=== PATIENT | male | born 1975 | race Caucasian/White ===

== ENCOUNTER → 2020-07-20 16:15 | Outpatient (BNVA) | payer SELFPAY | PROVIDERS: Family Provider Family Medicine; Visit Provider Nurse Practitioner Family | DX: Z20.2 Contact with and (suspected) exposure to infections with a predominantly sexual mode of transmission (principal); A63.0 Anogenital (venereal) warts | CPT/HCPCS: 87491; 87591 ==

== ENCOUNTER 2021-09-15 07:43 | Emergency (ER) | payer SELFPAY ==
[2021-09-15 08:00] VITALS: BP 164/94; PULSE 75; RESP 16; TEMP 36.7; O2SAT 98; BMI 25.7
[2021-09-15 08:14] VITALS: BP 164/94; PULSE 80; RESP 18; TEMP 37; O2SAT 98
--- NOTE | 2021-09-15 09:03 | XRR_ITS ---
PROCEDURE INFORMATION: Exam: XR Right Wrist Exam date and time: 09/15/2021 9:03 AM Age: 46 years old Clinical indication: Pain; Wrist; Right TECHNIQUE: Imaging protocol: XR Right wrist. Views: 3 or more views. COMPARISON: No relevant prior studies available. FINDINGS: Bones/joints: Normal. Soft tissues: Normal. XR/XR wrist RT min 3V* [id number] IMPRESSION: No acute findings. Radiation Dose CTDIVOL = (mGy): DLP = (mGy-cm)
--- NOTE | 2021-09-15 09:07 | W.ED.GENADLT ---
HPI - General Adult General: Chief complaint: General Medical Stated complaint: R. Arm Pain/Elbow Down Time Seen by Provider: 09/15/21 08:06 Source: patient and family Mode of arrival: ambulatory History of Present Illness: HPI narrative: 46-year-old male presents emergency department chief complaint of right wrist pain right forearm pain after a proximal Enterobacter walnuts yesterday for work he reports with her machine was broken when she was lifting heavy canisters up to 100 pounds each bags contained walnuts. Patient reports of a known history of prior injury noted to the right wrist he reports that he woke up this morning with increased pain discomfort swelling and difficulty with bending the wrist. Patient has no other complaints at this time. Onset (ago): day(s) (1) Radiation: extremity Severity: moderate Relieving factors: immobilization and rest Exacerbating factors: movement Associated symptoms: Reports no associated symptoms; Deny chest pain, dyspnea, headache(s), nausea, rash, palpitations or vomiting Review of Systems General: Reports: 10 or more systems reviewed and unremarkable except in HPI and below Const: Denies: fever(s) or chills Eyes: Denies: change in vision or blurry vision ENMT: Denies: throat pain Card: Denies: chest pain or palpitations Resp: Denies: dyspnea or productive cough GI: Denies: abdominal pain, nausea or vomiting : Denies: flank pain Musc: Reports: extremity pain, extremity swelling, joint pain, joint swelling, joint stiffness and limited range of motion Skin/Breast: Denies: rash or pruritus Neuro: Denies: headache(s) Psych: Denies: anxiety or depression Chandu/Lymph: Denies: easy bleeding All/Imm: Denies: urticaria, throat swelling or facial swelling PFS ED PFSH: Social History (Updated 07/20/20 @ 16:04 by Latasha Smith LPN) Smoking and tobacco status: current every day smoker Alcohol intake: current Course Vital Signs: Vital signs: Vital Signs Temperature 98.6 F 09/15/21 11:02 Pulse Rate 17 L 09/15/21 11:02 Respiratory Rate 17 09/15/21 10:53 Blood Pressure 168/98 09/15/21 11:02 Pulse Oximetry 97 09/15/21 11:02 MDM - General Adult MDM Narrative: Medical decision making narrative: Due to the patient's symptoms condition x-ray of the right wrist for will be obtained patient was provided intramuscular Toradol for breakthrough pain control we will continue to follow. X-ray imaging came back reassuring except for arthritic change patient placed in cock-up wrist splint advised her to follow-up primary care in 3 to 5 days which was advised to return in the interim if any of his symptoms persist or worse. Discharge Plan Discharge Patient Disposition: Home Clinical Impression: Strain of right wrist Qualifiers: Encounter type: initial encounter Qualified Code(s): S66.911A - Strain of unspecified muscle, fascia and tendon at wrist and hand level, right hand, initial encounter Arthritis of wrist, degenerative Qualifiers: Osteoarthritis type: primary Laterality: right Qualified Code(s): M19.031 - Primary osteoarthritis, right wrist Condition: Stable Prescriptions: New tramadol 100 mg tablet 100 mg PO Q12H PRN (Reason: pain) Qty: 15 RF: 0 No Action imiquimod 3.75 % cream in packet 1 packet TOPICAL DAILY 28 Days Qty: 28 RF: 0 Discharge Orders: Discharge ED (Routine); Ordered 09/15/21 Ordered By: Moses Gomez Discharge Diet: Usual diet Discharge Activity: Limit activity as instructed Patient Instructions: Wrist Injury (ED), Wrist Sprain (ED), Opioid Safety Activity Restrictions/Additional Instructions: Please follow-up with your primary care doctor in the next 2 to 3 days, use the splint of your right wrist for comfort over the next 2 to 3 days take medication as prescribed for your breakthrough pain and discomfort in which please return in the interim if any of your symptoms persist or worse. Coding Level of Care Code ED Animal Trapper for Ainsley Amaya
[2021-09-15 09:19] VITALS: BP 142/82; PULSE 65; RESP 18; O2SAT 98
[2021-09-15] MEDS: ketorolac 60 mg/2 mL INJ IM (09:22)
[2021-09-15 10:53] VITALS: BP 168/98; PULSE 71; RESP 17; TEMP 37; O2SAT 97
[2021-09-15 11:02] VITALS: BP 168/98; PULSE 17; TEMP 37; O2SAT 97
== END 2021-09-15 11:00 | disposition home or self-care (01) ==
PROVIDERS: Emergency Provider Emergency Medicine
DX: S66.911A Strain of unspecified muscle, fascia and tendon at wrist and hand level, right hand, initial encounter (principal); M19.031 Primary osteoarthritis, right wrist; F17.210 Nicotine dependence, cigarettes, uncomplicated; X50.0XXA Overexertion from strenuous movement or load, initial encounter
CPT/HCPCS: 73110; 96372; 99283; J1885

== ENCOUNTER 2022-07-24 18:23 | Emergency (ER) | payer MEDICAID, OTHER, SELFPAY ==
[2022-07-24 18:31] VITALS: BP 179/141; PULSE 108; RESP 22; O2SAT 100; BMI 27.1
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
--- NOTE | 2022-07-24 19:04 | PC.NURSE ---
Report given to PADILLA Lambert
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
[2022-07-24 19:31] VITALS: BP 149/94; PULSE 105; RESP 18; O2SAT 98
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
[2022-07-24] MEDS: HYDROcodone-acetaminophen 5-325 mg Tablet 1 TAB PO ×2 (20:51→21:57)
[2022-07-24 21:30] VITALS: BP 174/98; PULSE 91; RESP 20; O2SAT 97
--- NOTE | 2022-07-24 22:15 | PC.NURSE ---
Pt refused crutches. States he has a brand new pair in the truck and knows how to use them. Knee immobilizer applied. SMC's intact before and after application.
--- NOTE | 2022-07-25 10:24 | DCPLANNER ---
Addendum entered by Lilly Michael 07/29/22 15:51: Patient had a follow up appointment scheduled with ortho for 07.29.22 - patient did attend appointment. Original Note: retail general manager had message to schedule a follow up appointment for patient with ortho. retail general manager sent patients information to the front office staff at ortho. Patients information will be printed and reviewed. Clinic will call patient with appointment information.
== END 2022-07-24 22:05 | disposition home or self-care (01) ==
PROVIDERS: Emergency Provider Emergency Medicine
DX: S82.142A Displaced bicondylar fracture of left tibia, initial encounter for closed fracture (principal); S20.312A Abrasion of left front wall of thorax, initial encounter; S40.819A Abrasion of unspecified upper arm, initial encounter; S40.812A Abrasion of left upper arm, initial encounter; S80.812A Abrasion, left lower leg, initial encounter; V28.4XXA Motorcycle driver injured in noncollision transport accident in traffic accident, initial encounter
CPT/HCPCS: 29530; 71045; 73552; 73562; 73590; 73700; 99285

== ENCOUNTER 2022-07-31 10:33 | Day surgery (SDC) | payer MEDICAID, SELFPAY ==
[2022-07-31] VITALS (13 sets, daily range): BP systolic 135–196; BP diastolic 82–124; PULSE 65–87; RESP 16–18; TEMP 36.3–36.6; O2SAT 90–100
--- NOTE | 2022-07-31 | SCC_ITS ---
Procedure done: Open reduction and internal fixation left lateral tibial plateau 81.2 seconds of fluoroscopic guidance, for a cumulative dose of 8.0 mGy, was provided to Dr. Ellis by the radiology department. C-arm images of the LEFT tibia fibula were saved for the patient's permanent record. [facility] CENTERJustin
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
--- NOTE | 2022-07-31 11:07 | ANES.PREANE2 ---
Pre-Anesthetic Assessment Height/Weight: Height 1.83 m Weight 99.79 kg Temp Pulse Resp BP Pulse Ox O2 Del Method 97.3 F L 87 16 145/111 96 07/31/22 10:52 07/31/22 10:52 07/31/22 10:52 07/31/22 10:52 07/31/22 10:52 07/31/22 10:59 Preop Diagnosis: Fracture left lateral tibial plateau Operation Date: 07/31/22 12:45 Proposed Procedures p ORIF left lateral tibial plateau/ 19686,S82.123A(Left) - Jose Guadalupe Ellis MD Familial anesthetic complications: None Was Beta Nehemias taken within 24 hours: N/A Was Clonidine taken within 24 hours: N/A Last intake: Intake Last Liquid Date 07/30/22 Last Liquid Time 22:00 Last Solid Date 07/30/22 Last Solid Time 22:00 Social No alcohol and No tobacco Exam alert, oriented x 3, clear to auscultation bilaterally and regular rate & rhythm Airway Submandibular: within normal limits Cervical ROM: within normal limits Mallampati: Class I Dentition: full History/ROS No significant complaints Pulmonary None reported CV/HEM None reported None reported Hepatic None reported GI None reported Metabolic None reported Musc/skel None reported Neuropsych None reported Anesthetic Plan ASA status: 2 Anesthesia: Anesthesia Evaluation and General Other: We discussed risk and benefits of general anesthesia including PONV, sore throat (sometimes severe), corneal abrasion, positioning and peripheral nerve injuries, life threatening allergic reaction, post operative ICU admission requiring prolonged intubation, stroke, heart attack, , and rare incidences of recall. Patient consents to proceed with general anesthesia. Plan multimodal analgesia with MgSO4, gabapentin, acetaminophen, ketamine, narcotics. Risk of > 500 ml blood loss (7ml/kg in children): No Medications/Allergies Home Medications Medication Instructions Recorded Confirmed Last Taken Type No Known Home Medications 07/30/22 07/30/22 Unknown History Allergies Allergy/AdvReac Type Severity Reaction Status Date / Time No Known Allergies Allergy Verified 07/29/22 15:04 [facility] Anesthesia Social History Smoking and tobacco status: current every day smoker Alcohol intake: current Data Anesthesia Cardiac Studies: No Data to Display
[2022-07-31] MEDS: sodium chloride 0.9% 1,000 ML 30 ML IV (11:18)
[2022-07-31] MEDS: acetaminophen 1,000 MG/100 ML PIGGYBACK 400 MG IV (11:20)
[2022-07-31] MEDS: gabapentin 300 mg Capsule 600 MG PO (11:31)
[2022-07-31] MEDS: magnesium sulfate premix 2 GM/50 ML PIGGYBACK IV (11:33)
[2022-07-31] MEDS: scopolamine 1.5 Patch 1 PATCH TRANSDERMA (11:35)
[2022-07-31] MEDS: ceFAZolin 2,000 MG in sodium chloride 0.9% (plus) 50 ML 100 MG IV (11:58)
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
[2022-07-31] MEDS: labetalol 5 mg/mL SDV 20mL 10 MG IVP ×2 (14:00→14:35)
[2022-07-31] MEDS: hyDRALAzine 20 mg/mL INJ 1 mL 10 MG IVP ×2 (14:15→14:23)
[2022-07-31] MEDS: fentaNYL 50 mcg/mL INJ 2mL IVP ×2 (14:18→14:26)
[2022-07-31] MEDS: HYDROmorphone 1 mg/mL INJ 1 mL 0.5 MG IVP (14:31)
[2022-07-31] MEDS: oxyCODONE-APAP 5-325 mg Tablet 1 TAB PO (14:57)
--- NOTE | 2022-07-31 15:16 | ANE.PACU2 ---
Inpatient post-anesthesia follow up: Airway intact: Yes Vital signs: Temperature 98 F Pulse Rate 68 Respiratory Rate 16 Blood Pressure 144/92 Pulse Oximetry 94 Oxygen Delivery Me thod Room Air Oxygen Flow Rate 8 Fraction of Inspir ed Oxygen Hydration adequate: Yes Nausea and vomiting: No Pain level: 5 Mental status: Baseline
--- NOTE | 2022-08-10 22:56 | W.PM.OPSUD ---
Surgery/Procedure H&P Update DATE OF PROCEDURE: August 10, 2022 DATE H&P PERFORMED: 07/25/22 H&P UPDATE INFORMATION: I have reviewed H&P completed within last 30 days PREOP DIAGNOSIS: Fracture left lateral tibial plateau PLANNED PROCEDURE: Operation Date: 07/31/22 12:45 Proposed Procedures p ORIF left lateral tibial plateau/ 81518,S82.123A(Left) - Jose Guadalupe Ellis MD
== END 2022-07-31 15:50 | disposition home or self-care (01) ==
PROVIDERS: Visit Provider Orthopaedic Surgery
PROC: (CPT 27535; principal; 2022-07-31 12:35)
DX: S82.142A Displaced bicondylar fracture of left tibia, initial encounter for closed fracture (principal); V29.9XXA Motorcycle rider (driver) (passenger) injured in unspecified traffic accident, initial encounter; F17.200 Nicotine dependence, unspecified, uncomplicated
CPT/HCPCS: 27535; 73590; 76000; C1713; J0360; J1100; J1170; J1580; J2405; J2704; J3010; J3475; J3490; J7030; L1812

== ENCOUNTER 2022-08-06 15:58 | Outpatient (CLI) | payer OTHER, MEDICAID, SELFPAY | END 2022-08-06 15:59 | disposition home or self-care (01) | LOC: SPT 15:59 | PROVIDERS: Visit Provider Nurse Practitioner Family | DX: S82.123D Displaced fracture of lateral condyle of unspecified tibia, subsequent encounter for closed fracture with routine healing (principal); X58.XXXD Exposure to other specified factors, subsequent encounter | CPT/HCPCS: 97760; L1830 ==

== ENCOUNTER → 2022-08-13 13:23 | Outpatient (BNVA) | payer MEDICAID, SELFPAY | PROVIDERS: Visit Provider Nurse Practitioner Family | DX: Z98.890 Other specified postprocedural states (principal) | CPT/HCPCS: 73590 ==

== ENCOUNTER → 2022-10-01 15:05 | Outpatient (BNVA) | payer MEDICAID, SELFPAY | PROVIDERS: Visit Provider Nurse Practitioner Family | DX: Z98.890 Other specified postprocedural states (principal) | CPT/HCPCS: 73590 ==

== ENCOUNTER → 2022-12-04 15:29 | Outpatient (BNVA) | payer MEDICAID, SELFPAY | PROVIDERS: Visit Provider Nurse Practitioner Family | DX: M23.8X2 Other internal derangements of left knee (principal); Z98.890 Other specified postprocedural states | CPT/HCPCS: 73590 ==

== ENCOUNTER 2023-07-05 13:56 | Emergency (ER) | payer MEDICAID, SELFPAY ==
[2023-07-05 14:01] VITALS: PULSE 98; RESP 14; TEMP 36.6; O2SAT 96; BMI 29.1
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
[2023-07-05] MEDS: HYDROcodone-acetaminophen 5-325 mg Tablet 1 TAB PO (14:48)
[2023-07-05] MEDS: ceFAZolin 2,000 mg SDV 2000 MG IRRIGATION (15:04)
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
[2023-07-05 16:50] VITALS: BP 165/115; PULSE 81; O2SAT 100
--- NOTE | 2023-07-06 08:36 | DCPLANNER ---
Addendum entered by Lilly Michael 07/08/23 08:17: airport operations manager received the following message from the Wound Care clinic regarding follow up appointment: Left pt a voicemail to call clinic for an appt time and date! Thank you Addendum entered by Lilly Michael 07/08/23 08:16: airport operations manager received the following message from the ortho clinic regarding follow up appointment: attempt made to contact patient - goes straight to - did leave msg to call us to schedule. Dr. Lin would like to get him in this afternoon 07/07 at 3:30 Original Note: airport operations manager had message to schedule a follow up appointment for patient with ortho. airport operations manager sent patients information to the front office staff at ortho. Patients information will be printed and reviewed. Clinic will call patient with appointment information. airport operations manager had message to schedule a follow up appointment for patient with wound care. airport operations manager sent patients information to the front office staff at wound care. Patients information will be printed and reviewed. Clinic will call patient with appointment information.
--- NOTE | 2023-07-07 13:49 | DCPLANNER ---
security manager called patient due to no primary care physician - patient declines at this time
== END 2023-07-05 16:53 | disposition home or self-care (01) ==
PROVIDERS: Emergency Provider Physician Assistant
DX: S81.012A Laceration without foreign body, left knee, initial encounter (principal); S83.92XA Sprain of unspecified site of left knee, initial encounter; F17.210 Nicotine dependence, cigarettes, uncomplicated; V28.49XA Other motorcycle driver injured in noncollision transport accident in traffic accident, initial encounter
CPT/HCPCS: 73562; 73700; 99284; E0114; J0690

== ENCOUNTER 2023-07-13 22:01 | Emergency (ER) | payer MEDICAID, SELFPAY ==
[2023-07-13 22:06] VITALS: BP 156/91; PULSE 103; RESP 16; TEMP 36.6; O2SAT 97; BMI 29.1
--- NOTE | 2023-07-13 23:34 | ECG_ITS ---
[facility] Test Date: 2023-07-14 Pat Name: Scar Motley Department: Room: Gender: Male Director Business Travel: : 1975 Requested By: Keith Cantu Order Number: [id number] Lozano MD: Monica Maria M.D. Measurements Intervals [place] Rate: 80 P: 65 KS: 187 QRS: 21 QRSD: 70 T: 44 QT: 330 QTc: 382 Interpretive Statements SINUS RHYTHM No previous ECG available for comparison Electronically Signed On 07-14-2023 3:48:54 CDT by Monica Maria M.D. [email or web address]
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
[2023-07-13 23:55] LABS: Basophils # 0.1 10^3/uL (0.0-0.1); Basophils % 0.5 %; Eosinophils # 0.2 10^3/uL (0.0-0.8); Eosinophils % 1.6 %; Hematocrit 43.7 % (42.0-52.0); Hemoglobin 14.1 g/dL (11.7-16.6); Lymphocytes # 3.1 10^3/uL (0.8-4.8); Lymphocytes % 31.4 %; Mean Corpuscular HGB Conc 32.3 g/dL (30.0-36.0); Mean Corpuscular Hemoglobin 28.5 pg (28.0-34.0); Mean Corpuscular Volume 88.3 fl (80-94); Mean Platelet Volume 10.5 fL (7.4-10.4); Monocytes # 0.7 10^3/uL (0.2-0.9); Monocytes % 7.3 %; Neutrophils # 5.71 10^3/uL (1.8-7.7); Neutrophils % 58.6 %; Nucleated Red Blood Cells % 0 %; Platelet Count 297 10^3/cmm (130-400); Red Blood Count 4.95 10^6/uL (4.1-5.3); Red Cell Distribution Width 13.9 % (12.1-15.1); White Blood Count 9.8 10^3/uL (4.0-10.0)
[2023-07-14 00:05] LABS: Erythrocyte Sedimentation Rate 17 mm/hr (0-10)
[2023-07-14 00:20] LABS: Alanine Aminotransferase 17 U/L (0-41); Alkaline Phosphatase 69 U/L (40-130); Anion Gap 11.3 (5-19); Aspartate Amino Transferase 13 U/L (0-40); Blood Urea Nitrogen 15 mg/dL (6-20); C Reactive Protein 8.2 mg/L (0.0-4.9); Calcium 9.4 mg/dL (8.5-10.5); Carbon Dioxide 29 mmol/L (22-29); Chloride 101 mmol/L (98-107); Globulin 3.2 g/dL (1.3-4.6); Glomerular Filtration Rate 90.4 mL/min (90-130); Glucose 93 mg/dL (65-115); Lactic Sepsis W/Reflex 0.9 mmol/L (0.5-2.2); Osmolality Calculated 285 mOsm/kg (285-295); Potassium 4.3 mmol/L (3.5-5.1); Sodium 137 mmol/L (136-145); Total Bilirubin 0.2 mg/dL (0.15-1.2); Total Protein 7.2 g/dL (6.6-8.7)
[2023-07-14] MEDS: oxyCODONE-APAP 5-325 mg Tablet 2 TAB PO (00:33)
[2023-07-14 01:11] LABS: Add Urine Microscopic? NO; Charge for UA Resulting for Rev
[2023-07-14 01:23] LABS: Amphetamines Screen Urine Positive (Negative); Barbiturates Screen Urine Negative (Negative); Benzodiazepines Screen Urine Negative (Negative); Cocaine Screen Urine Negative (Negative); Opiate Screen Urine Negative (Negative); PCP Screen Urine Negative (Negative); THC Screen Urine Positive (Negative)
[2023-07-14 01:25] LABS: Bilirubin Urine Neg (Negative); Blood Urine Neg (Negative); Glucose Urine UA Norm (Normal); Ketones Urine Negative (Negative); Leukocyte Esterase Urine Negative (Negative); Nitrate Urine Negative (Negative); Protein Urine Neg (Negative); Specific Gravity, Urine 1.025 (1.005-1.030); Urine Appearance Clear (CLEAR); Urine Color Yellow (Yellow); Urobilinogen Urine Neg (Negative); pH Urine 5 (5-7)
[2023-07-14 01:48] VITALS: BP 156/91; PULSE 103; RESP 16; TEMP 36.6; O2SAT 97
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
== END 2023-07-14 01:51 | disposition home or self-care (01) ==
PROVIDERS: Emergency Provider Emergency Medicine; PCP Specialist
DX: S81.032A Puncture wound without foreign body, left knee, initial encounter (principal); S80.212A Abrasion, left knee, initial encounter; F17.210 Nicotine dependence, cigarettes, uncomplicated; V29.99XA Rider (driver) (passenger) of other motorcycle injured in unspecified traffic accident, initial encounter
CPT/HCPCS: 36415; 73562; 80053; 80306; 81003; 83605; 85025; 85651; 86140; 93005; 99285